=== PATIENT | female | born 1950 | race Caucasian/White ===

== ENCOUNTER 2023-08-01 16:38 | Emergency (ER) | payer MEDICARE, OTHER, SELFPAY ==
[2023-08-01 16:41] VITALS: BP 139/114
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
[2023-08-01] MEDS: ATIVAN 0.5 MG PO (19:26)
[2023-08-01] MEDS: TYLENOL 650 MG PO (19:55)
[2023-08-01 19:58] VITALS: BP 163/99
== END 2023-08-01 19:59 | disposition home or self-care (01) ==
LOC: EMR 16:38
PROVIDERS: EMERGENCY PHYSICIAN Emergency Medicine
DX: S01.511A Laceration without foreign body of lip, initial encounter (principal); S01.81XA Laceration without foreign body of other part of head, initial encounter; S60.222A Contusion of left hand, initial encounter; W19.XXXA Unspecified fall, initial encounter; Y93.55 Activity, bike riding
CPT/HCPCS: 99283; 12011; 73130